=== PATIENT | female | born 1980 ===

== ENCOUNTER → 2020-03-25 19:22 | Outpatient (REF) | payer MEDICAID, SELFPAY | LOC: HO.SL 19:22 | PROVIDERS: Visit Provider Registered Nurse | DX: G47.19 Other hypersomnia (principal); R06.83 Snoring; F32.9 Major depressive disorder, single episode, unspecified; I10 Essential (primary) hypertension | CPT/HCPCS: 95811 ==

== ENCOUNTER 2020-04-30 10:23 | Outpatient (REF) | payer MEDICAID, SELFPAY | END 2020-04-30 10:24 | disposition home or self-care (01) | LOC: HO.LAB 10:23 | PROVIDERS: Visit Provider Internal Medicine | DX: Z20.828 Contact with and (suspected) exposure to other viral communicable diseases (principal) | CPT/HCPCS: C9803; U0003 ==

== ENCOUNTER 2020-08-29 09:00 | Outpatient (RCR) | payer MEDICAID, SELFPAY ==
[2020-07-28 08:54] VITALS: BP 144/81; PULSE 81
== END 2021-07-03 14:28 | disposition home or self-care (01) ==
LOC: HO.PT 09:00
PROVIDERS: PCP Registered Nurse; Visit Provider Registered Nurse
DX: M79.672 Pain in left foot (principal)
CPT/HCPCS: 97033; 97110; 97161; 97530; 97535

== ENCOUNTER 2020-11-04 08:25 | Outpatient (REF) | payer MEDICAID, SELFPAY | END 2020-11-04 08:26 | disposition home or self-care (01) | LOC: HO.XRAY 08:25 | PROVIDERS: Visit Provider Surgery | DX: Z13.89 Encounter for screening for other disorder (principal) ==

== ENCOUNTER 2020-12-19 14:29 | Outpatient (REF) | payer MEDICAID, SELFPAY ==
[2020-12-19 15:02] LABS: COVID-19 Test Positive (Negative); IDNOW Serial# 08D9AD1C
== END 2020-12-19 14:30 | disposition home or self-care (01) ==
LOC: HO.LAB 14:29
PROVIDERS: Visit Provider Internal Medicine
DX: Z20.822 Contact with and (suspected) exposure to COVID-19 (principal)
CPT/HCPCS: 36415; 87635; C9803

== ENCOUNTER 2021-12-06 10:22 | Emergency (ER) | payer MEDICAID, SELFPAY ==
[2021-12-06 11:01] VITALS: BP 159/71; PULSE 70; RESP 18; TEMP 36.2; O2SAT 99; BMI 36.0
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
[2021-12-06] MEDS: Cyclobenzaprine HCl 5 MG TABLET PO (11:51)
[2021-12-06] MEDS: Ketorolac Tromethamine 15 MG/ML VIAL IM (11:52)
== END 2021-12-06 12:01 | disposition home or self-care (01) ==
PROVIDERS: Emergency Provider Student in an Organized Health Care Education/Training Program
DX: S29.9XXA Unspecified injury of thorax, initial encounter (principal); M54.2 Cervicalgia; V43.52XA Car driver injured in collision with other type car in traffic accident, initial encounter; Y93.9 Activity, unspecified; Y92.410 Unspecified street and highway as the place of occurrence of the external cause; Y99.9 Unspecified external cause status; Z79.899 Other long term (current) drug therapy
CPT/HCPCS: 96372; 99283; 99284; J1885

== ENCOUNTER 2022-01-27 07:56 | Emergency (ER) | payer MEDICAID, SELFPAY ==
--- NOTE | ~2022-01-27 | XR_ITS ---
EXAMINATION: XR SHOULDER, LEFT CLINICAL INFORMATION: Left shoulder pain. COMPARISON: None. TECHNIQUE: Four views of the left shoulder. FINDINGS: The bones and soft tissues are normal. No fracture. Glenohumeral and acromioclavicular alignment is anatomic with normal joint space. No abnormal soft tissue calcifications. XR/XR shoulder LT min 2V IMPRESSION: Normal left shoulder.
[2022-01-27 08:24] VITALS: BP 161/87; PULSE 88; RESP 18; TEMP 36.4; O2SAT 100; BMI 34.7
--- NOTE | 2022-01-27 08:55 | ED_ITS ---
HPI - General Adult General Chief complaint: Neck Pain/Injury Stated complaint: l sided neck and arm pain Time Seen by Provider: 01/27/22 08:27 Source: patient Mode of arrival: ambulatory History of Present Illness HPI narrative: 41 year old female with no sig PMHx presenting to the ED complaining of left shoulder pain radiating to neck and LUE x2 weeks. 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 Pain worse with movement/palpation. Denies direct injury/trauma or fall, numbness, tingling, weakness, headache, vision change, CP. Has been taking ibuprofen with mild relief Onset (ago): week(s) Related Data Previous Rx's Medication Instructions Recorded cyclobenzaprine 5 mg tablet 5 mg PO TID PRN muscle spasm 7 12/06/21 days #21 tabs Allergies Allergy/AdvReac Type Severity Reaction Status Date / Time No Known Allergies Allergy Verified 12/06/21 11:01 Review of Systems Review of Systems: Constitutional: No Fever, No Chills ENT/Mouth: No Ear Pain, No Nasal Congestion, No Sinus Pain, No Hoarseness, No sore throat, No Rhinorrhea, No Swallowing Difficulty Cardiovascular: No Chest Pain, No SOB Respiratory: No Cough, No Sputum, No Wheezing Gastrointestinal: No Nausea, No Vomiting, No Diarrhea, No Constipation, No Abdominal pain Genitourinary: No Dysuria, No Urinary Frequency, No Hematuria, No Urinary Incontinence/retention Musculoskeletal: + joint pain, No Myalgias, No Joint Swelling Skin: No Skin Lesions, No rash Neuro: No Weakness, No Numbness, No Paresthesias Yes all other systems are reviewed and are negative Constitutional: Constitutional: Reports as per [facility] Past Medical History Attestation statement: The following information was validated with the patient. Social History Social History Advance Directives: No Advance Directives Information Provided: No Physical Exam ED Vital Signs: Vital Signs - 24 hr 01/27/22 08:24 Temperature 97.5 F Pulse Rate 88 Respiratory Rate 18 Blood Pressure 161/87 H Pulse Oximetry 100 Oxygen Delivery Method Room Air BMI result Body Mass Index 34.7 Const General: cooperative, healthy appearing and no acute distress Orientation/consciousness: patient oriented x3 Limitations: no limitations HENMT Head: Yes normal to inspection and Yes atraumatic Ears: hearing grossly normal bilaterally, TM normal on the left and mastoids normal General nose exam: Normal external nose present Face and sinus: Yes normal facial exam Eyes General: appearance normal, both eyes and all related structures EOM: EOMs intact bilaterally Neck Other: No midline cervical spinous tenderness/step-off or deformity. + left-sided trapezius muscle tenderness and muscle spasming Neck: Yes normal visual inspection and Yes no meningeal signs Resp Effort & Inspection: normal respiratory effort and no respiratory distress Cardio Rate: regular rate Heart sounds: S1 normal heart sound present and S2 normal heart sound present Peripheral pulses: radial pulses present and ulnar radial pulses present Back/Spine/Pelvis Other: No midline thoracic/lumbar spinous tenderness/step-off or deformity Skin Rashes: no rashes Wounds: no wounds Neuro General: patient oriented x3, tone normal and no meningeal signs Gait exam (Neuro): Normal gait present Extrem Other: + left AC joint tenderness. Full range of motion intact shoulder with pain. Strength intact General: Yes normal to inspection Course Course Course Narrative: XR shoulder LT min 2V IMPRESSION: Normal left shoulder. Results discussed with patient w/ resource manager forester including worrisome signs and symptoms and strict return precautions, and when to return to the emergency department. They verbalized understanding and feel safe for discharge at this time. Medical Decision Making MDM Narrative Medical decision making narrative: 41 year old female with no sig PMHx presenting to the ED complaining of left shoulder pain radiating to neck and LUE x2 weeks. On exam vital signs stable, NAD, nontoxic appearing, physical exam as above. Concern for MSK pain/strain vs tendinitis. Low suspicion for fracture, cervical dissection, or ACS Plan: X-rays, IM Toradol, PCP follow-up Medical Records Medical records reviewed: Yes I reviewed the patient's medical records. Lab Data Lab results reviewed: Yes I reviewed the patient's lab results. Discharge Plan Discharge Clinical Impression: Left shoulder strain Patient Disposition: Home, Self-Care Instructions: Muscle Strain (ED) Additional Instructions: Your pain is likely musculoskeletal/tendonitis Flexeril is a muscle relaxer, take at night as it makes you drowsy, do not drive, drink alcohol, or operate machinery while taking it Naproxen as an anti-inflammatory / pain medication, take with food Lidoderm patches are numbing patches, apply to painful area In addition take Tylenol at home If symptoms persist or worsen, pain becomes unbearable, you developed urinary retention or incontinence, or weakness return to the ED Es probable que dye dolor sea musculoesquel?michele/tendinitis Flexeril es un relajante muscular, t?kalpana por la noche ya que te adormece, no conduzcas, bebas alcohol ni operes maquinaria mientras lo brie. Naproxeno bessy medicamento antiinflamatorio/analg?sico, t?tony con alimentos Los parches de Lidoderm son parches anest?sicos, se aplican en el ?mallory dolorida Adem?s kusum Tylenol en casa Si los s?ntomas persisten o empeoran, el dolor se vuelve insoportable, desarroll? retenci?n urinaria o incontinencia, o debilidad, regrese al servicio de urgencias. Prescriptions: No Action cyclobenzaprine 5 mg tablet 5 mg PO TID PRN (Reason: muscle spasm) 7 Days Qty: 21 0RF Referrals: [facility] [place] [facility] [place] Group] Stand Alone Forms: Work/School Release Print Language: Russian
[2022-01-27] MEDS: Ketorolac Tromethamine 30 MG/ML VIAL IM (09:53)
== END 2022-01-27 10:19 | disposition home or self-care (01) ==
PROVIDERS: Emergency Provider Emergency Medicine
DX: S46.912A Strain of unspecified muscle, fascia and tendon at shoulder and upper arm level, left arm, initial encounter (principal); X50.1XXA Overexertion from prolonged static or awkward postures, initial encounter; Y93.E9 Activity, other interior property and clothing maintenance; Y92.019 Unspecified place in single-family (private) house as the place of occurrence of the external cause; Y99.0 Civilian activity done for income or pay
CPT/HCPCS: 73030; 96372; 99283; 99284; J1885

== ENCOUNTER 2022-12-23 09:54 | Outpatient (REF) | payer MEDICAID, SELFPAY ==
[2022-12-23 10:09] LABS: MANUAL DIFF FLAG NO
[2022-12-23 10:45] LABS: Basophils Absolute Auto 0.1 X10*3/uL (0.0-0.2); Basophils Percent Auto 0.5 % (0-2); Eosinophils Absolute Auto 0.2 X10*3/uL (0.0-0.4); Hematocrit 39.8 % (37.0-47.0); Imm Gran Abs Auto 0.05 X10*3/uL (0.00-0.03); Imm Gran Pct Auto 0.5 % (0.0-0.4); Lymphocytes Percent Auto 28.2 % (20-40); Mean Corpuscular HGB Conc 32.7 g/dl (31.0-35.0); Mean Corpuscular Hemoglobin 29.2 pg (27.0-33.0); Mean Corpuscular Volume 89.4 fL (80.0-98.0); Mean Platelet Volume 9.7 fL (9.4-12.3); Monocytes Absolute Auto 0.6 X10*3/uL (0.1-1.2); Neutrophils Absolute Auto 6.8 x10*3/uL (2.0-8.3); Neutrophils Percent Auto 62.8 % (45-73); Platelet Count 300 X10*3/uL (160-400); Red Blood Count 4.45 X10*6/uL (4.20-5.50); Red Cell Distribution Width 12.3 % (11.0-16.0); White Blood Count 10.7 X10*3/uL (4.8-10.8)
[2022-12-23 11:00] LABS: Estimated Average Glucose 97 mg/dL
[2022-12-23 11:20] LABS: Alanine Aminotransferase 34 U/L (0-31); Albumin Level 4.1 g/dL (3.5-5.0); Alkaline Phosphatase 76 U/L (39-117); Anion Gap 13 (12-20); Aspartate Amino Transferase 20 U/L (5-31); Bilirubin Direct 0.2 mg/dL (0.0-0.5); Bilirubin Total 0.4 mg/dL (0.0-1.0); Blood Urea Nitrogen 13 mg/dL (9-16); Calcium 9.8 mg/dL (8.4-10.2); Carbon Dioxide 30 mmol/L (22-29); Chloride 100 mmol/L (96-108); Cholesterol 185 mg/dL; Estimated Glomerular Filt Rate > 60; Glucose Random 98 mg/dL (60-115); HDL Cholesterol 43 mg/dL; LDL Cholesterol Calculated 119 mg/dl; Potassium 3.8 mmol/L (3.3-5.1); Sodium 139 mmol/L (135-145); Total Protein 7.7 g/dL (6.5-8.0); Triglycerides 119 mg/dL
[2022-12-23 11:35] LABS: TSH reflex Free T4 1.32 uIU/mL (0.32-4.0)
[2022-12-24 04:13] LABS: Syphilis Screen Nonreactive (Nonreactive)
== END 2022-12-23 09:55 | disposition home or self-care (01) ==
LOC: HO.LAB 09:54
PROVIDERS: PCP Registered Nurse; Visit Provider Registered Nurse
DX: Z00.00 Encounter for general adult medical examination without abnormal findings (principal); R53.83 Other fatigue; I10 Essential (primary) hypertension
CPT/HCPCS: 36415; 80053; 80061; 82248; 83036; 84443; 85025; 86780

== ENCOUNTER 2023-10-21 09:42 | Outpatient (REF) | payer MEDICAID, SELFPAY ==
[2023-10-21 11:51] LABS: Estimated Average Glucose 94 mg/dL; Hemoglobin A1c % 4.9 % (<6.0)
[2023-10-21 12:00] LABS: Alanine Aminotransferase 29 U/L (0-31); Albumin Level 4.3 g/dL (3.5-5.0); Alkaline Phosphatase 69 U/L (39-117); Anion Gap 10 (12-20); Aspartate Amino Transferase 20 U/L (5-31); Bilirubin Total 0.4 mg/dL (0.0-1.0); Blood Urea Nitrogen 12 mg/dL (9-16); Calcium 9.8 mg/dL (8.4-10.2); Carbon Dioxide 28 mmol/L (22-29); Chloride 106 mmol/L (96-108); Cholesterol 197 mg/dL (<200); Estimated Glomerular Filt Rate > 60; Glucose Random 105 mg/dL (60-115); HDL Cholesterol 40 mg/dL (>40); LDL Cholesterol Calculated 141 mg/dL (<100); Potassium 4.7 mmol/L (3.3-5.1); Sodium 139 mmol/L (135-145); Total Protein 7.8 g/dL (6.5-8.0); Triglycerides 82 mg/dL (<150)
[2023-10-21 12:17] LABS: Free T4 (Free Thyroxine) 0.83 ng/dL (0.71-1.85); Thyroid Stimulating Hormone 1.11 uIU/mL (0.32-4.0)
== END 2023-10-21 09:43 | disposition home or self-care (01) ==
LOC: HO.HHCL 09:42
PROVIDERS: Visit Provider Registered Nurse
DX: E66.01 Morbid (severe) obesity due to excess calories (principal); Z68.38 Body mass index [BMI] 38.0-38.9, adult
CPT/HCPCS: 36415; 80053; 80061; 83036; 84439; 84443

== ENCOUNTER 2023-12-27 09:05 | Outpatient (AMB) | payer OTHER, MEDICAID, SELFPAY ==
--- NOTE | 2023-12-27 09:16 | A.OFFVIS_ITS ---
Vital Signs 12/27/23 09:25 Height 5 ft 7 in Weight 234 lb BMI 36.6 BP 151/101 H Blood Pressure Location Rt brachial Position Sitting Pulse 68 Intake Visit Reasons: back lesion Intake Note: Patient referred by pcp Bettina Toledo NICKOLAS for cyst on mid upper back. Present for 3yrs. Patient c/o: irritated when rubs with clothing. Shopper Insights Manager Required: No Accompanied by: Self / Same As Patient Allergies No Known Allergies Allergy (Verified 12/27/23 09:21) Medication List - Last Reconciled 12/27/23 by Joce Gonzalez MD acetaminophen (Tylenol Extra Strength) 500 mg PO Q6H PRN cyclobenzaprine 5 mg PO TID PRN 7 days cyclobenzaprine 5 mg PO Q8H PRN 5 days escitalopram oxalate mg PO lidocaine 5% (Lidoderm) 1 patch topical DAILY PRN MDD remove after 12 hours naproxen 500 mg PO BID PRN 10 days nicotine (polacrilex) mg PO olmesartan mg PO HPI Comments Details: Patient presents with a symptomatic right upper back sebaceous cyst. She has had this several years time. His increasing in size, become more symptomatic. She would like to have removed. She has no such lesions elsewhere. Chart was reviewed and patient evaluate [facility] Medical History (Updated 12/27/23 @ 09:23 by BRUCE Holcomb) HTN (hypertension) Social History (Updated 12/27/23 @ 09:24 by BRUCE Holcomb) Alcohol intake: current Alcohol intake frequency: holidays/special occasions only Alcohol type: beer Tobacco use type: Cigarette Cigarettes Per Day: 7 Physical Exam Vital Signs: Last Vital Signs Pulse 68 12/27/23 09:25 BP 151/101 H 12/27/23 09:25 BMI result Body Mass Index 36.6 Back/Spine/Pelvis Other: Patient has roughly 3 x 2 cm upper back sebaceous cyst. Office Procedures Excision Details: Risks, benefits, alternatives of excision of upper back sebaceous cyst reviewed the patient included but not limited to bleeding, infection, recurrence, numbness, pain, scarring the patient wished to proceed. All questions answered. Consent signed. After appropriate positioning, patient underwent 1% lidocaine and Betadine prep and transverse by elliptical incision was made around the cyst in question measuring approximately 3 x 2 cm. Cyst was uneventfully excised of the pathology. Wound was irrigated, secured hemostasis, and closed using running 3-0 Vicryl suture followed by Steri-Strips and sterile dressings. Patient tolerated procedure well. 80925-vljaq/arms/legs 2.1-3cm Procedure code (CPT) selection complete Office Meds lidocaine 1 %-epinephrine 1:100,000 injection solution Performing Provider: Joce Gonzalez MD [place] [facility] [place] [facility] Administered by: Joce Gonzalez MD on 12/27/23 10:01 Dose Route Admin Location Dispensed Lot Number Expiration Date [facility] [place][NOTE 3] Mixing Machine Operator 10 mL Infiltration 10 mL Assessment & Plan Assessment & Plan (1) Sebaceous cyst: Code(s): L72.3 - Sebaceous cyst Category: Surgical Plan: Patient has been given local instructions including avoiding strenuous activities for next few weeks time, may shower in 2 days, ice to the wound periodically, Tylenol and Motrin p.r.n. pain and may shower in 2 days removing on the outside dressing leaving Steri-Strips intact. Patient will see me as directed or p.r.n.. Orders: Orders AMB Excision Today L72.3 - Sebaceous cyst Surgical Today L72.0 - Epidermal cyst Medications: New lidocaine-epinephrine 1 %-1:100,000 10 mL Infiltration ONCE 30 mL 0RF L72.3 - Sebaceous cyst Coding Level of Care Code New Pt Level 5 (82780) Diagnoses Sebaceous cyst L72.3 CPT Codes Trunk/Arms/Legs - CPT: 10996-wngaq/arms/legs 2.1-3cm ([id number])
[2023-12-27 09:25] VITALS: BP 151/101; PULSE 68; BMI 36.6
== END 2023-12-27 09:50 | disposition home or self-care (01) ==
PROVIDERS: PCP Registered Nurse; Visit Provider Surgery
DX: L72.0 Epidermal cyst (principal)
CPT/HCPCS: 11403; 99204

== ENCOUNTER 2023-12-27 09:05 | Outpatient (REF) | payer OTHER, MEDICAID, SELFPAY | END 2023-12-27 09:06 | disposition home or self-care (01) | LOC: HO.LNP 09:05 | PROVIDERS: PCP Registered Nurse; Visit Provider Surgery | DX: L72.0 Epidermal cyst (principal); L72.3 Sebaceous cyst | CPT/HCPCS: 11403; 88304; 99202 ==

== ENCOUNTER 2024-01-10 08:16 | Outpatient (AMB) | payer OTHER, MEDICAID, SELFPAY ==
--- NOTE | 2024-01-10 08:26 | MHC.OFFVIS ---
Vital Signs 01/10/24 08:27 Height 5 ft 7 in Weight 235 lb BMI 36.8 BP 173/89 H Blood Pressure Location Rt brachial Position Sitting Pulse 71 Intake Visit Reasons: 1 week follow up back lesion Intake Note: Patient here s/p WLE cyst on mid upper back. Patient c/o: reports site healing well. Steri strips fell off. Denies oozing, pain. Radioactive Waste Disposal Dispatcher Required: No Accompanied by: Self / Same As Patient Allergies No Known Allergies Allergy (Verified 01/10/24 08:26) HPI Comments Details: Patient presents with her family member for follow-up. She has no wound issues so complaints. Pathology is benign [facility] Medical History HTN (hypertension) Surgical History (Updated 01/06/24 @ 09:42 by BRUCE Holcomb) Hx of surgical procedure (12/27/23) Social History (Updated 12/27/23 @ 09:24 by BRUCE Holcomb) Alcohol intake: current Alcohol intake frequency: holidays/special occasions only Alcohol type: beer Tobacco use type: Cigarette Cigarettes Per Day: 7 Physical Exam Vital Signs: Last Vital Signs Pulse 71 01/10/24 08:27 BP 173/89 H 01/10/24 08:27 BMI result Body Mass Index 36.8 Back/Spine/Pelvis Other: Back wound clean dry and intact healing very well Assessment & Plan Assessment & Plan (1) Postop check: Code(s): Z09 - Encounter for follow-up examination after completed treatment for conditions other than malignant neoplasm Category: Medical Plan Patient has been given local instructions, and will follow-up p.r.n.. Coding Level of Care Code Global (92085) Diagnoses Postop check Z09
[2024-01-10 08:27] VITALS: BP 173/89; PULSE 71; BMI 36.8
== END 2024-01-10 09:20 | disposition home or self-care (01) ==
PROVIDERS: PCP Registered Nurse; Visit Provider Surgery
DX: Z09 Encounter for follow-up examination after completed treatment for conditions other than malignant neoplasm (principal)
CPT/HCPCS: 99024

== ENCOUNTER → 2024-01-10 08:16 | Outpatient (BNVA) | payer OTHER, MEDICAID, SELFPAY | PROVIDERS: PCP Registered Nurse; Visit Provider Surgery | DX: Z09 Encounter for follow-up examination after completed treatment for conditions other than malignant neoplasm (principal) | CPT/HCPCS: 99212 ==

== ENCOUNTER 2024-08-28 09:36 | Outpatient (REF) | payer OTHER, MEDICAID, SELFPAY ==
--- NOTE | ~2024-08-28 | XR_ITS ---
EXAMINATION: XR KNEE, LEFT CLINICAL INFORMATION: pain x3 months COMPARISON: None available. TECHNIQUE: Four views of the left knee. FINDINGS: No fracture, dislocation, or suspicious bone lesion. Normal bone mineralization. Normal alignment. There is mild to moderate tricompartmental joint space narrowing, most significant in the patellofemoral compartment, where there is lateral patellar tilt, and narrowing of the lateral patellar facet/trochlear articulation. There are small marginal osteophytic spurs in all 3 compartments. There is mild spurring of the tibial spines. Small suprapatellar joint effusion. Soft tissues appear normal. XR/XR knee LT 4V IMPRESSION: 1. Mild to moderate tricompartmental osteoarthritis, most significant in the patellofemoral compartment. Electronically signed by: Louis Gutiérrez MD 08/28/2024 10:16 AM EDT
--- OUTSIDE RECORDS SUMMARY | 2024-08-28 10:37 | XMS_ITS | Clinical Summary ---
Author Organization [facility] ity Address [address] [place] [address] Care Team Providers Care Logistics Service Representative Name Role Phone Unavailable Primary Care Provider Unavailabl e Surgical History Surgery Date Site/Laterality Comments OTHER SURGICAL HISTORY PROCEDURE: DE LIG/TRNSXJ FLP TUBE ABDL/VAG APPR UNI/BI TUBAL LIGATION PROCEDURE: HISTORICAL TUBAL LIGATION Medical History Medical History Date Comments HTN (hypertension) DX:HTN (hyper tension) HTN (hypertension) 09/19/2023 DX:HTN (hyper tension) Family History Medical History Relation Name Comments Hypertension Father Diabetes Mother Hypertension Mother Breast cancer Neg Hx Colon cancer Neg Hx Ovarian cancer Neg Hx Prostate cancer Neg Hx Relation Name Status Comments Brother 1 Alive Brother 2 Alive Father Alive Half-Brother Alive Half-Sister Alive Mother Alive Sister 1 Alive Sister 2 Alive Social History Tobacco Use Types Packs/Day Years Used Date Smoking Tobacco: Heavy Smoker Cigarettes Smokeless Tobacco: Never Alcohol Use Standard Drinks/Week Comments No 0 (1 standard drink = 0.6 oz pur e alcohol) Comments Unknown Sex and Gender Information Value Date Recorded Sex Assigned at Not on file Legal Sex Female 5:45 AM EST Gender Identity Not on file Sexual Orientation Not on file Obstetrics History Last Filed Vital Signs Vital Sign Reading Time Taken Comments Blood Pressure 127/70 09/19/2023 10:58 AM EDT Pulse 88 09/19/2023 10:58 AM EDT Temperature - - Respiratory Rate - - Oxygen Saturation - - Inhaled Oxygen Concentration - - Weight 114 kg (252 lb) 09/19/2023 10:58 AM EDT Height 170.2 cm (5' 7 ) 09/19/2023 10:58 AM EDT Body Mass Index 39.47 09/19/2023 10:58 AM EDT Plan of Treatment Upcoming Encounters Date Type Department Care Team (Late st Contact Info) Description 02/04/2025 8:30 AM EDT Appointment Radiology Department - [place] [address] [place] [address] Health Maintenance Due Date Last Done Comments DTaP,Tdap,and Td Vaccines (1 - Tdap) 2000 Hepatitis B Vaccines (1 of 3 - 19+ 3-dose series) 2000 Pneumococcal Vaccine: Pediatrics (0 to 5 Years) and At-Risk Patients (6 to 64 Years) (1 of 2 - PCV) 2000 Cervical Cancer Screening: P ap Smear 07/27/2020 07/27/2017, 07/27/2017 Cholesterol Screening (Lipid Panel) 06/07/2023 Depression Screening 06/07/2023 Hepatitis C Screening 06/07/2023 Social Influencers of Health Screening 06/07/2023 Hypertension/CHF/CAD Annual BMP Blood Test 12/02/2023 COVID-19 Vaccine (2023-2 5 season) 2024 Influenza Vaccine (Season Ended) 2025 Breast Cancer Screening 01/23/2026 01/24/20 24, 01/24/2024, 01/17/2023 HIV Screening Completed 09/19/2023 HIB Vaccines Aged Out No longer eligi ble based on patient's age to complete this topic HPV Vaccines Aged Out No longer eligi ble based on patient's age to complete this topic Hepatitis A Vaccines Aged Out No long er eligible based on patient's age to complete this topic IPV Vaccines Aged Out No longer eligi ble based on patient's age to complete this topic MMR Vaccines Aged Out No longer eligi ble based on patient's age to complete this topic Meningococcal ACWY Vaccine Aged Out N o longer eligible based on patient's age to complete this topic Meningococcal B Vaccine Aged Out No l onger eligible based on patient's age to complete this topic RSV Immunization Patients Under 20 months Aged Out No longer eligible b ased on patient's age to complete this topic Varicella Vaccines Aged Out No longer eligible based on patient's age to complete this topic Procedures Procedure Name Priority Date/Time Associated Diagnosis Comments SCREENING MAMMOGRAPHY BI 2-VIEW BREAST INC CAD Routine 01/24/2024 8:52 AM EDT Encounter for screening mammogram for malignant neoplasm of breast PAP SMEAR Routine 07/27/2017 from Last 3 Months or Most Recently Relevant to Health Maintenance Results * SCREENING MAMMOGRAPHY BI 2-VIEW BREAST INC CAD (01/24/2024 8:52 AM EDT) Anatomical Region Laterality Modality Radiographic Michelle ging 01/17/2023 7:55 AM EDT Narrative 01/24/2024 2:34 PM EDT This is a summary report. The complete report is available in the patient's medical record. If you cannot access the medical record, please contact the sending organization for a detailed fax or copy. Full field digital screening tomosynthesis mammography, reviewed with CAD and compared to previous mammogram of 01/17/2023. The breast tissue is heterogeneously dense, limiting sensitivity. No suspicious mass, architectural distortion or suspicious calcifications are identified. IMPRESSION: : Dense breast tissue, limiting the sensitivity of mammography. No mammographic evidence of malignancy. BIRADS 1-Negative; N. Breast density: The breasts are heterogeneously dense, which may obscure small masses. 5 year breast cancer risk assessment 0.3 % Lifetime breast cancer risk assessment 5.1 % Breast cancer risk category Low (<15%) Location: [facility], [address] [place] [address], [place], [address], [phone] Procedure Note Adrianna De Paz MD - 02/22/2024 This is a summary report. The complete report is available in thepatient's medical record. If you cannot access the medical record, pleasecontact the sending organization for a detailed fax or copy. Full field digital screening tomosynthesis mammography, reviewed with CADand compared to previous mammogram of 01/17/2023. The breast tissue isheterogeneously dense, limiting sensitivity. No suspicious mass,architectural distortion or suspicious calcifications are identified. IMPRESSION: : Dense breast tissue, limiting the sensitivity of mammography. Nomammographic evidence of malignancy. BIRADS 1-Negative; N. Breast density: The breasts are heterogeneously dense, which may obscuresmall masses. 5 year breast cancer risk assessment 0.3 % Lifetime breast cancer risk assessment 5.1 % Breast cancer risk category Low (<15%) [facility]: [facility], [address] [facility] [facility] [place], [address], [phone] Chika Malagon CNM IMG XR PROCEDURES Final Result * Pap smear (07/27/2017) 07/27/2017 Narrative HISTORICAL TESTING LAB RESULTING AGENCY - 07/29/2017 1:30 PM EDT [id number] THINPREP PAP, IMAGED: NEGATIVE FOR SQUAMOUS INTRAEPITHELIAL LESION AND MALIGNANCY ??. RESULT OF APTIMA HIGH RISK HPV ASSAY: ? NEGATIVE ?? (SEROTYPES 16,18,31,33,35,39,45,51,52,56,58,59,66,68) JACY FATIMA(ASCP) (CASE ELECTRONICALLY SIGNED 07 29 2017) ADEQUACY: SATISFACTORY. ENDOCERVICAL/TRANSFORMATION ZONE COMPONENT PRESENT. SOURCE: THINPREP PAP HPV ANY DX: ??REFLEX 16 AND 18, CERVICAL, IMAGED: CLINICAL INFORMATION: HPV ANY DIAGNOSIS. Z12.4, Z01.419, Z12.12, PAP HX: POSITIVE, BALWINDER AT 2010 COLPO BX LEEP, LMP: 07/06/17 us Chika Malagon CNM LAB CYTOLOGY ORDERABLES Final R esult HISTORICAL TESTING LAB RESULTING AGENCY from Last 3 Months or Most Recently Relevant to Health Maintenance
--- OUTSIDE RECORDS SUMMARY | 2024-08-28 10:37 | XMS_ITS | Encounter Summary ---
Author Organization [employer] Address [address] [place] [address] Care Team Providers Care Foam Rubber Molder Name Role Phone [facility] Primary Care Provider Reason for Visit * Reason Onset Date Comments Durable Medical Equipment 08/20/2024 [facility] ([facility]): Nasal mask Encounter Details Date Type Department Care Team (Late st Contact Info) Description 08/20/2024 Telephone [facility] MEDICINE [address] [place], [place] [phone] [facility] [address] [place] [address] Durable Medical Equipment ([facility] ([facility]): Nasal mask) Social History Tobacco Use Types Packs/Day Years Used Date Smoking Tobacco: Every Day Cigarettes Smokeless Tobacco: Never Alcohol Use Standard Drinks/Week Comments Never 0 (1 standard drink = 0.6 oz pur e alcohol) Alcohol Answer Date Recorded Frequency of Alcohol Consumption Not on file 10/21/2023 Average Number of Drinks Not on file 024 Frequency of Binge Drinking Not on file 10/07 Score 0 10/21/2023 Depression Answer Date Recorded Patient Health Questionnaire-9 Score 5 10/21/2023 Patient Health Questionnaire-9 Score 5 10/21/2023 Last PHQ-9: Questionnaire Data Not on file 0 10/21/2023 Housing Stability Answer Date Recorded What is your housing situation today? I have paul mendoza 08/23/[address] you li ve. Do you have problems with any of the following? None of the above 08/23/2024 Food Insecurity Answer Date Recorded Within the past 12 months, y ou worried that your food would run out before you got money to buy more: Never True 08/23/2024 Within the past 12 months,th e food you bought just didn't last and you didn't have enough money to get more: Never True Transportation Answer Date Recorded In the past 12 months, has l ack of transportation kept you from medical appts, meetings, work or from getting things needed for daily living? No 08/23/2024 Utilities Answer Date Recorded In the past 12 months, has t he electric, gas, oil or water company threatened to shut off services in your home? No 08/23/2024 Depression Answer Date Recorded Patient Health Questionnaire-2 Score 2 10/21/2023 Internet Access Answer Date Recorded Internet Access Q1 Yes 08/23/2024 Internet Access Q2 Not on file 08/23/2024 Comments Unknown Sex and Gender Information Value Date Recorded Sex Assigned at Female 03/08/2022 10:26 AM EDT Legal Sex Female 10:26 AM EDT Gender Identity Female 03/08/2022 10:26 AM EDT Sexual Orientation Straight 03/08/2022 10 :26 AM EDT documented as of this encounter Miscellaneous Notes * Telephone Encounter - Crissy Fortune - 08/23/2024 10:06 AM EDT Confirmation of order for Nasal Mask signed and faxed to [facility] ([facility]). Confirmation received and sent to [facility]. If patient calls to check status on above, please advise them to contact [facility] at [phone]. * Telephone Encounter - Crissy Fortune - 08/20/2024 1:32 PM EDT Recertification for CPAP Nasal Mask from [facility] received and is being processed. documented in this encounter Plan of Treatment Not on file documented as of this encounter Visit Diagnoses Not on filedocumented in this encounter Additional Health Concerns Assessment Noted Time PHQ-9 Depression Total Score: 5 10/21/19 24 9:08 AM EDT documented as of this encounter Care Teams Foam Rubber Molder Relationship Specialty Start Date End Date Bettina Bergeron FNP [address] [place] [address] PCP - General Family Medicine 01/06/22 documented as of this encounter
--- OUTSIDE RECORDS SUMMARY | 2024-08-28 10:37 | XMS_ITS | Encounter Summary ---
Author Organization [employer] Address [address] [place] [address] Care Team Providers Care Chicken Cutter Name Role Phone [facility] Primary Care Provider [phone] Encounter Details Date Type Department Care Team (Latest Contact Info) Description 08/23/2024 Travel Social History Tobacco Use Types Packs/Day Years [...] is your housing situation today? I have paulrex mendoza 08/23/[address] you [...] Access Q2 Not on file 08/23/2024 Comments No Sex and Gender Information Value Date Recorded Sex Assigned at Female 03/08/2022 10:26 AM EDT Legal Sex Female 10:26 AM EDT Gender Identity Female 03/08/2022 10:26 AM EDT Sexual Orientation Straight 03/08/2022 10 :26 AM EDT documented as of this encounter Plan of Treatment Not on file documented as of this encounter Visit Diagnoses Not on filedocumented in this encounter Additional Health Concerns Assessment Noted Time PHQ-9 Depression Total Score: 5 10/21/19 24 9:08 AM EDT documented as of this encounter Care Teams Chicken Cutter Relationship Specialty Start Date End Date Bettina Bergeron FNP [address] [place] [phone] PCP - General Family Medicine 01/06/22 documented as of this encounter
--- OUTSIDE RECORDS SUMMARY | 2024-08-28 10:37 | XMS_ITS | Encounter Summary ---
Author Organization [employer] Address [address] [place] [address] Care Team Providers Care Yield Engineer Name Role Phone [facility] Primary Care Provider [phone] Encounter Details Date Type Department Care Team (Late st Contact Info) Description 08/23/2024 11:30 AM EDT Office Visit [facility] MEDICINE [address] [place] [address] Saundra Spicer MD [address] [place], [place] [phone] Acute pain of left knee; Bilateral wrist pain; Bilateral hand numbness Social History Tobacco Use Types Packs/Day Years Used Date Smoking Tobacco: Every Day Cigarettes Smokeless Tobacco: Never Tobacco Cessation:Ready to Q uit: Not Asked; Counseling Given: Not Answered Alcohol Use Standard Drinks/Week Comments Never 0 [...] AM EDT documented as of this encounter Last Filed Vital Signs Vital Sign Reading Time Taken Comments Blood Pressure 138/90 08/23/2024 11:24 AM EDT Pulse 85 08/23/2024 11:24 AM EDT Temperature 36.3 ??C (97.4 ??F) 08/23/2024 11:24 AM E DT Respiratory Rate 19 08/23/2024 11:24 AM EDT Oxygen Saturation 98% 08/23/2024 11:24 AM EDT Inhaled Oxygen Concentration - - Weight 117 kg (258 lb) 08/23/2024 11:24 AM EDT Height 170.2 cm (5' 7 ) 08/23/2024 11:24 AM EDT Body Mass Index 40.41 08/23/2024 11:24 AM EDT documented in this encounter Progress Notes * Saundra Johnson MD - 08/23/2024 11:30 AM EDT SUBJECTIVE: Elmira Oconnell is a 43 y.o. year old female who presents for knee pain . Acute Concerns: Patient reports that for about 2 weeks she has been having pain located in her left knee, patient reports she does not recall any triggering activity and she has not had any trauma to her knee. Patient reports she feels her knee mildly swell and is tender to palpation Patient also reports she has been having pain on both wrists and numbness in her hands, more on herright hand than the left one Social History Social History Narrative Current living environment: Lives with daughter and boyfriend Children: 2 Employment/Education: [employer] Tobacco Use: approx 6 per day. Started age 17. Alcohol Use: None Marijuana Use: None Other drug use: None Reproductive Health: Sexually Active: Yes Partners are: AMAB Control: BTL Planning a in the next 12 months: No Patient Active Problem List Diagnosis Depressive disorder Essential hypertension Sleep apnea H/O tubal ligation Tobacco use Acute pain of left knee Bilateral wrist pain Bilateral hand numbness Family History Problem Relation Name Age of Onset Hypertension Mother Diabetes type II Mother Review of Systems Constitutional: Negative. HENT: Negative. Respiratory: Negative. Cardiovascular: Negative. Gastrointestinal: Negative. Musculoskeletal: Positive for arthralgias and myalgias. OBJECTIVE: Vitals: 08/23/24 1124 BP: (!) 138/90 BP Location: Left arm Patient Position: Sitting BP Cuff Size: Adult Pulse: 85 Resp: 19 Temp: 97.4 ??F (36.3 ??C) TempSrc: Oral SpO2: 98% Weight: 258 lb (117 kg) Height: 5' 7 (1.702 m) Physical Exam Constitutional: Appearance: Normal appearance. Cardiovascular: Rate and Rhythm: Normal rate and regular rhythm. Pulmonary: Effort: Pulmonary effort is normal. Breath sounds: Normal breath sounds. Musculoskeletal: General: Tenderness present. Right wrist: Tenderness present. Left wrist: Tenderness present. Right knee: Normal. Left knee: Bony tenderness present. Decreased range of motion. Tenderness present over the LCL. Comments: Phallen test is positive on the right hand Neurological: Mental Status: She is alert. Follow Up: No follow-ups on file. Current Outpatient Medications on File Prior to Visit Medication Sig Dispense Refill acetaminophen (Tylenol) 500 MG tablet Take 2 tablets (1,000 mg) by mouth every 6 (six) hours if needed for moderate pain or fever for up to 25 doses. 50 tablet 0 Blood Pressure kit Use to take blood pressure 2 times a day, hypertension. buPROPion SR (Wellbutrin SR) 150 MG 12 hr tablet TAKE 1 TABLET BY ORAL ROUTE EVERY MORNING FOR 3 DAYS. IF TOLERATING WELL MAY INCREASE TO TWICE DAILY 180 tablet 1 Cetirizine HCl 10 MG capsule take one capsule every morning while allergy symptoms persist chlorthalidone (Hygroton) 25 MG tablet TAKE 1/2 TABLET BY MOUTH DAILY 45 tablet 1 cholecalciferol (Vitamin D-3) 50 MCG (2000 UT) capsule Take 1 capsule by mouth. escitalopram (Lexapro) 5 MG tablet Take 1 tablet by mouth per day. If tolerating well may increase to 2 tablet (10mg) one daily 60 tablet 2 ibuprofen 400 MG tablet Take 1 tablet (400 mg) by mouth every 6 (six) hours if needed for moderate pain or fever for up to 30 doses. 30 tablet 0 naproxen (Naprosyn) 500 MG tablet Take 1 tablet by mouth every 12 (twelve) hours. nicotine (Nicoderm CQ) 14 MG/24HR patch Place 1 patch on the skin 1 (one) time each day at the sametime. 42 patch 0 nicotine polacrilex (Nicorette) 4 MG gum Chew 1 each (4 mg) if needed for smoking cessation. 100 each 2 olmesartan (Benicar) 5 MG tablet Take 2 tablets (10 mg) by mouth Once per day. 180 tablet 3 omeprazole (PriLOSEC) [address] capsule TAKE 1 CAPSULE BY MOUTH EVERY DAY 30 MINUTES TO 1 HOUR BEFORE A MEAL 90 capsule 1 sodium chloride (Luray) 0.65 % nasal spray Administer 1 spray into each nostril if needed for congestion. 1-2 spray each nostril every 2-3 hours as needed for nasal congestion. 30 mL 1 triamcinolone (Kenalog) 0.1 % cream Apply topically every 12 (twelve) hours. [DISCONTINUED] ibuprofen 400 MG tablet Take 1 tablet (400 mg) by mouth every 6 (six) hours if needed for moderate pain or fever for up to 30 doses. 30 tablet 0 No current facility-administered medications on file prior to visit. Problem List Items Addressed This Visit Acute pain of left knee I advised to elevate the knee apply ice and rest I will order an x-ray and contact patient with results and plan Relevant Medications acetaminophen (Tylenol Extra Strength) 500 MG tablet Other Relevant Orders XR Knee 4+ Views Left Bilateral wrist pain Bilateral hand numbness I am suspecting she has carpal tunnel syndrome, I will generate a prescription for bilateral wrist braces and advised to use them at bedtime and during the day if possible, will consider nerve conduction studies if problem is persistent or worse documented in this encounter Miscellaneous Notes * Assessment & Plan Note - Saundra Johnson MD - 08/24/2024 2:20 PM EDT Associated Problem(s): Acute pain of left knee I advised to elevate the knee apply ice and rest I will order an x-ray and contact patient with results and plan * Assessment & Plan Note - Saundra Johnson MD - 08/24/2024 2:19 PM EDT Associated Problem(s): Bilateral hand numbness I am suspecting she has carpal tunnel syndrome, I will generate a prescription for bilateral wrist braces and advised to use them at bedtime and during the day if possible, will consider nerve conduction studies if problem is persistent or worse documented in this encounter Plan of Treatment Not on file documented as of this encounter Procedures Procedure Name Priority Date/Time Associated Diagnosis Comments XR KNEE 4+ VIEWS LEFT Routine 08/28/2024 9:37 AM EDT Acute pain of left knee documented in this encounter Results * XR Knee 4+ Views Left (08/28/2024 9:37 AM EDT) Anatomical Region Laterality Modality Lower Extremities, Knee Left Radiogra [facility] 08/28/2024 9:37 AM EDT Narrative 08/28/2024 10:19 AM EDT ?[facility] ?[address] ?[place] [address] ?XRay Report ? Signed ? Patient: Peter Saunders,Elmira ?MR#: ?? [id number] ? : 1980 ?Acct:[id number] ? Age/Sex: 43 / F ?ADM Date: 08/28/24 ? Loc: HO.HHCX ? Attending Dr: Saundra Johnson MD ? Ordering Physician: Saundra Spicer MD ?? Date of Service: 08/28/24 ?? Procedure(s): XR knee LT 4V ?? Accession Number(s): [id number] ? cc: Saundra Spicer MD ? EXAMINATION: ?? XR KNEE, LEFT ? CLINICAL INFORMATION: ?? pain ??x3 months ? COMPARISON: ?? None available. ? TECHNIQUE: ?? Four views of the left knee. ? FINDINGS: ?? No fracture, dislocation, or suspicious bone lesion. Normal bone ?? mineralization. ?? Normal alignment. ?? There is mild to moderate tricompartmental joint space narrowing, most ?? significant in the patellofemoral compartment, where there is lateral ?? patellar tilt, and narrowing of the lateral patellar facet/trochlear ?? articulation. There are small marginal osteophytic spurs in all 3 ?? compartments. There is mild spurring of the tibial spines. ? Small suprapatellar joint effusion. ? Soft tissues appear normal. ? XR/XR knee LT 4V ?? IMPRESSION: ?? 1. Mild to moderate tricompartmental osteoarthritis, most significant ?? in the patellofemoral compartment. ? Electronically signed by: ??Louis Gutiérrez MD ??08/28/2024 10:16 AM EDT RP ? Dictated By: ?Louis Gutiérrez MD ? Signed By: ?<Electronically signed by Louis Gutiérrez MD in OV> ?08/28/24 1016 ? DD/ 0937 ? TD/TT: 08/28/24 0959 ? Rn Occupational Health: ? Procedure Note Angelique Cadena - 08/28/2024 [facility] [address] [place] [address] XRay Report Signed Patient: Elmira DumontMR#: [id number] : 1980Acct:[id number] Age/Sex: 43 / FADM Date: 08/28/24 Loc: HO.HHCX Attending Dr: Saundra Johnson MD Ordering Physician: Saundra Spicer MD Date of Service: 08/28/24 Procedure(s): XR knee LT 4V Accession Number(s): [id number] cc: Saundra Spicer MD EXAMINATION: XR KNEE, LEFT CLINICAL INFORMATION: pain x3 months COMPARISON: None available. TECHNIQUE: Four views of the left knee. FINDINGS: No fracture, dislocation, or suspicious bone lesion. Normal bone mineralization. Normal alignment. There is mild to moderate tricompartmental joint space narrowing, most significant in the patellofemoral compartment, where there is lateral patellar tilt, and narrowing of the lateral patellar facet/trochlear articulation. There are small marginal osteophytic spurs in all 3 compartments. There is mild spurring of the tibial spines. Small suprapatellar joint effusion. Soft tissues appear normal. XR/XR knee LT 4V IMPRESSION: 1. Mild to moderate tricompartmental osteoarthritis, most significant in the patellofemoral compartment. Electronically signed by: Louis Gutiérrez MD 08/28/2024 10:16 AM EDT Dictated By: Louis Gutiérrez MD Signed By: <Electronically signed by Louis Gutiérrez MD in OV> 08/28/24 1016 DD/ 0937 TD/TT: 08/28/24 0959 Rn Occupational Health: Saundra Johnson MD IMG XR PROCEDURES Fin al Result documented in this encounter Visit Diagnoses Diagnosis Acute pain of left knee Bilateral wrist pain Bilateral hand numbness Disturbance of skin sensation documented in this encounter Additional Health Concerns Assessment Noted Time PHQ-9 Depression Total Score: 5 10/21/19 24 9:08 AM EDT documented as of this encounter Care Teams Yield Engineer Relationship Specialty Start Date End Date Bettina Bergeron FNP [address] [place] [id number] PCP - General Family Medicine 01/06/22 documented as of this encounter
--- OUTSIDE RECORDS SUMMARY | 2024-08-28 10:37 | XMS_ITS | Clinical Summary ---
Author Organization [employer] Address [address] [place] [address] Care Team Providers Care Custodial Supervisor Name Role Phone [facility] Primary Care Provider [phone] Allergies No known active allergies Medications Cetirizine HCl 10 MG capsule take one capsule every morning while allergy symptoms persist 08/08/19 22 Active cholecalciferol (Vitamin D-3) 50 MCG (1999) capsule Take 1 capsule by mouth. 03/03/20 21 Active naproxen (Naprosyn) 500 MG tablet Take 1 tablet by mouth every 12 (twelve) hours. 02/05/20 22 Active triamcinolone (Kenalog) 0.1 % cream Apply topically every 12 (twelve) hours. 08/08/19 22 Active Blood Pressure kit Use to take blood pressure 2 times a day, hypertension. Active acetaminophen (Tylenol) 500 MG tablet Take 2 tablets (1,000 mg) by mouth every 6 (six) hours if needed for moderate pain or fever for up to 25 doses. 50 tablet 10/27/19 23 Active sodium chloride ([place]) 0.65 % nasal spray Administer 1 spray into each nostril if needed for congestion. 1-2 spray each nostril every 2-3 hours as needed for nasal congestion. 30 mL 1 10/27/19 23 Active nicotine (Nicoderm CQ) 14 MG/24HR patch Place 1 patch on the skin 1 (one) time each day at the same time. 42 patch 10/27/19 23 Active omeprazole (PriLOSEC) [address] capsule TAKE 1 CAPSULE BY MOUTH EVERY DAY 30 MINUTES TO 1 HOUR BEFORE A MEAL 90 capsule 1 04/11/20 23 Active buPROPion SR (Wellbutrin SR) 150 MG 12 hr tabletIndicatio ns:Tobacco use TAKE 1 TABLET BY ORAL ROUTE EVERY MORNING FOR 3 DAYS. IF TOLERATING WELL MAY INCREASE TO TWICE DAILY 180 tablet 1 06/29/19 24 Active olmesartan (Benicar) 5 MG tabletIndicatio ns:Essential hypertension Take 2 tablets (10 mg) by mouth Once per day. 180 tablet 3 10/21/19 24 Active nicotine polacrilex (Nicorette) 4 MG gumIndications: Tobacco use Chew 1 each (4 mg) if needed for smoking cessation. 100 each 2 10/21/19 24 Active escitalopram (Lexapro) 5 MG tabletIndicatio ns:Essential hypertension Take 1 tablet by mouth per day. If tolerating well may increase to 2 tablet (10mg) one daily 60 tablet 2 10/21/19 24 Active chlorthalidone (Hygroton) 25 MG tablet TAKE 1/2 TABLET BY MOUTH DAILY 45 tablet 1 11/14/19 24 Active ibuprofen 400 MG tablet Take 1 tablet (400 mg) by mouth every 6 (six) hours if needed for moderate pain or fever for up to 30 doses. 30 tablet 08/21/19 25 Active acetaminophen (Tylenol Extra Strength) 500 MG tabletIndicatio ns:Acute pain of left knee Take 1 tablet (500 mg) by mouth every 6 (six) hours if needed for mild pain for up to 10 days. 30 tablet 08/24/19 25 025 Active ibuprofen 400 MG tablet Take 1 tablet (400 mg) by mouth every 6 (six) hours if needed for moderate pain or fever for up to 30 doses. 30 tablet 10/27/19 23 025 Discontinued(R eorder (will not trigger notification to Pharmacy)) Active Problems Problem Noted Date Diagnosed Date Acute pain of left knee 08/23/2024 Assessment & Plan (08/24/2024 2:20 PM EDT): I advised to elevate the knee apply ice and rest I will order an x-ray and contact patient with results and plan Bilateral wrist pain 08/23/2024 Bilateral hand numbness 08/23/2024 Assessment & Plan (08/24/2024 2:19 PM EDT): I am suspecting she has carpal tunnel syndrome, I will generate a prescription for bilateral wrist braces and advised to use them at bedtime and during the day if possible, will consider nerve conduction studies if problem is persistent or worse Tobacco use 01/06/2023 Overview (03/21/2023): - Previously tried patches 9not effective) Assessment & Plan (03/21/2023 2:27 PM EST): - Readiness 10/16 - Shared decision make re options. Will trial buproprion d/t hx of weight gain with prior cessation efforts. -START buproprion 150mg XR. Reviewed administration, risks, side effects to include feeling anxious, jittery, or restless, trouble sleeping, fatigue, headaches, nausea or upset stomach, dry mouth, sexual dysfunction and weight gain. Stop taking this medication and seek immediate medical care if experiencing thoughts of suicide, fever, muscle rigidity, changes in blood pressure or heart palpitations. Risk of rare but serious side effects increases if taking multiple medications for depression or anxiety simultaneously. - Nicotine lozenge PRN for cravings - Pt declines referral to pharmacy or group cessation Depressive disorder 03/27/2022 Essential hypertension 03/27/2022 Overview (03/20/2023): ?? Chlorthalidone 25mg ?? Olmesartan 5mg Maintenance: BMP: 12/2022 Lipid Panel: 12/2022 ASCVD Risk: 4.9% EKG: Obtain baseline at f/u - Aerobic exercise to reduce BP. Initial goal of 30 min walk 3-5x/week. Increase as tolerated. - low-sodium diet (goal: <2g/day) and heart healthy diet such as DASH to reduce BP and prevent ASCVD. - Home BP monitoring 1-2 x day with goal of <140/90. - Seek immediate medical attention for chest pain, palpitations, SOB, syncope, or sudden changes in mental status. - Do not change or discontinue current prescriptions without first consulting health care provider Assessment & Plan (03/21/2023 2:25 PM EST): ?? Mild elevation of BP in office. Home readings well controlled ?? Continue current regimen. Continue to monitor Sleep apnea 05/18/2021 Overview (03/20/2023): ?? Uses CPAP H/O tubal ligation 10/26/2016 Encounters Date Type Department Care Team Description 08/23/2024 11:30 AM EDT Office Visit [facility] [address] [place] [address] Saundra Spicer MD Acute pain of left knee; Bilateral wrist pain; Bilateral hand numbness 08/23/2024 Travel 08/20/2024 Refill [facility] [address] [place] [address] [facility] 08/20/2024 Telephone [facility] [address] [place] [address] [facility] ([facility] ([facility]): Nasal mask) from Last 3 Months Immunizations Name Administration Dates Next Due Influenza injectable quadriv alent IIV4 with preservative 01/31/2018 Influenza injectable quadrivalent preservative f ree 03/21/2023,03/02/2021 Pfizer Covid-19 Vaccine 12+ 11/28/2020 Tdap 10/18/2018 Family History Medical History Relation Name Comments Diabetes type II Mother Hypertension Mother Relation Name Status Comments Father Mother Social History Tobacco Use Types Packs/Day Years [...] Orientation Straight 03/08/2022 10 :26 AM EDT Last Filed Vital Signs Vital Sign Reading [...] Mass Index 40.41 08/23/2024 11:24 AM EDT Plan of Treatment Health Maintenance Due Date Last Done Comments Family Planning (PISQ) 1996 Hepatitis B Vaccines (1 of 3 - 19+ 3-dose series) 2000 Pneumococcal Vaccine: Pediatrics (0 to 5 Years) and At-Risk Patients (6 to 49) Years) (1 of 2 - PCV) 2000 Mammogram 2021 COVID-19 Vaccine (3 - 2023- season) 2024 01/17/2021, 11/28/2020 Influenza Vaccine (#1) 2024 3, 03/02/2021, 01/31/2018 Alcohol/Substance Use Screening 10/20/2024 10/21/2023 Depression Screening 10/20/2024 10/21/2023, 10/21/19 24 Pap Smear 11/26/2024 11/26/2021 SDOH Screening 08/23/2025 08/23/2024 Tobacco Screening 08/23/2025 08/23/2024 Cervical Cancer Screening 11/26/2026 HPV/Cotest 11/26/2026 11/26/2021 DTaP/Tdap/Td Vaccines (2 - Td or Tdap) 10/18/2028 10/18/2018 Lipid Panel 10/20/2028 10/21/2023, 12/07, 03/29/2022, Additional history exists Zoster Vaccines (1 of 2) 10/05/2031 RSV Patients and Patients Aged 60 years or older (1 - 1-dose 75+ series) 2056 HIV Screening Completed 03/29/2022, 12/04/2019 Hepatitis C Screening Completed 03/29/2022 HIB Vaccines Aged Out No longer eligi [...] patient's age to complete this topic Meningococcal Vaccine Aged Out No makenzie macie eligible based on patient's age to complete this topic RSV under 20 months Aged Out No longe r eligible based on patient's age to complete this topic Rotavirus Vaccines Aged Out No longer eligible based on patient's age to complete this topic Procedures Procedure Name Priority Date/Time Associated Diagnosis Comments XR KNEE 4+ VIEWS LEFT Routine 08/28/2024 9:37 AM EDT Acute pain of left knee LIPID PANEL, STANDARD Routine 10/21/2023 9:43 AM EDT Class 2 severe obesity due to excess calories with serious comorbidity and body mass index (BMI) of 38.0 to 38.9 in adult (CMS/HCC) ZZZ HISTORICAL HEPATITIS C AB W/REFL TO HCV RNA, QN, PCR Routine 03/29/2022 8:40 AM EST HIV 1/2 ANTIGEN/ANTIBODY, FOURTH GENERATION W/RFL Routine 03/29/2022 8:40 AM EST THINPREP IMAGING PAP AND HPV MRNA E6/E7, WITH CT/NG, TRICHOMONAS Routine 11/26/2021 3:33 PM EDT from Last 3 Months or Most Recently Relevant to Health Maintenance Results * XR Knee 4+ Views Left (08/28/2024 9:37 AM EDT) Anatomical Region Laterality Modality Lower Extremities, Knee Left [facility] 08/28/2024 9:37 AM EDT Narrative 08/28/2024 10:19 AM EDT ?[facility] ?[address] ?[place] [address] ?XRay Report ? Signed ? Patient: Peter Saunders,Elmira ?MR#: ?? [id number] ? : 1980 ?Acct:[id number] ? Age/Sex: 43 / F ?ADM Date: 04/22/25 ? Loc: HO.HHCX ? Attending Dr: Saundra Johnson MD ? Ordering Physician: Saundra Spicer MD ?? Date of Service: 08/28/24 ?? Procedure(s): XR knee LT 4V ?? Accession Number(s): [id number] ? cc: Saundra Spicer MD ? EXAMINATION: [...] DD/ 0937 ? TD/TT: 08/28/24 0959 ? Market Risk Manager: ? Procedure Note Angelique Cadena - 08/28/2024 [place] [address] XRay Report Signed Patient: Elmira Dumont#: [id number] : 1980Acct:[id number] Age/Sex: 43 / FADM Date: 08/28/24 Loc: HO.HHCX Attending Dr: Saundra Johnson MD Ordering Physician: Saundra Spicer MD Date of Service: 08/28/24 Procedure(s): XR knee LT 4V Accession Number(s): [id number] cc: Saundra Spicer MD EXAMINATION: XR KNEE, [...] 08/28/24 1016 DD/ 0937 TD/TT: 08/28/24 0959 Market Risk Manager: Saundra Johnson MD IMG XR PROCEDURES Fin al Result * (ABNORMAL) Lipid Panel, Standard (10/21/2023 9:43 AM EDT) Triglycerides 82 <150 mg/dL [facility] Comment:Desirable Triglyceri de: less than 150 mg/dLBorderline High Triglyceride 150-199 mg/dLHigh Triglyceride: 200-499 mg/dLVery High Triglyceride: greater than or equal to 5OO mg/dL Cholesterol 197 <200 mg/dL [facility] Comment:Desirable Cholestero l: less than 200 mg/dLBorderline High Cholesterol: 200-239 mg/dLHigh Cholesterol: greater than 239 mg/dL LDL Cholesterol Calculated 141(H) <100 mg/dL [facility] Comment:Desirable LDL: less than 100 mg/dLNear Optimal/Above Optimal LDL: 110- 129 mg/dLBorderline High LDL: 130-159 mg/dLHigh LDL: 160-189 mg/dLVery High LDL: greater than or equal to 190 mg/dL HDL Cholesterol 40(L) >40 mg/dL [facility] Comment:Desirable HDL: great er than 40 mg/dL Note: This HDL assay may give artificially low results in patients with liver disease. Blood Venous blood specimen / Unknown 10/21/2023 9:43 AM EDT 10/21/2023 11:07 AM EDT [facility] LAB BLOOD ORDERABLES Final Re sult Performing Organization Address City/[facility]/ZIP Co de Phone Number [facility] [address] [place] [address] [phone] * HEPATITIS C AB W/REFL TO HCV RNA, QN, PCR (03/29/2022 8:40 AM EST) HEPATITIS C ANTIBODY NON-REACTI VE NON-REACT FLOR [facility] INDEX 0.05 <1.00 [facility] Comment: ?? HCV antibody was non-reactive. There is no laboratory ?? evidence of HCV infection. ?? In most cases, no further action is required. However, if recent HCV exposure is suspected, a test for HCV RNA (test code 21777) is suggested. ?? For additional information please refer to http://education.Vine/faq/CAC59i5 (This link is being provided for informational/ educational purposes only.) ?? 03/29/2022 8:40 AM EST [facility] HISTORICAL/NON ORDERABLE LABS Final Result Performing Organization Address [facility] de Phone Number [facility] * HIV 1/2 ANTIGEN/ANTIBODY,FOURTH GENERATION W/RFL (03/29/2022 8:40 AM EST) HIV-1/2 ANTIGEN AND ANTIBODIES, 4TH GENERATION W/ REFLEX NON-REACT FLOR NON-REACT FLOR [facility] Comment: HIV-1 antigen and HIV-1/HIV-2 antibodies were not detected. There is no laboratory evidence of HIV infection. ?? PLEASE NOTE: This information has been disclosed to you from records whose confidentiality may be protected by state law. ??If your state requires such protection, then the state law prohibits you from making any further disclosure of the information without the specific written consent of the person to whom it pertains, or as otherwise permitted by law. A general authorization for the release of medical or other information is NOT sufficient for this purpose. ? For additional information please refer to http://Abroad101.Vine/faq/ZRY765 (This link is being provided for informational/ educational purposes only.) ? The performance of this assay has not been clinically validated in patients less than 2 years old. ?? 03/29/2022 8:40 AM EST [facility] LAB BLOOD ORDERABLES Final Re sult [facility] * (ABNORMAL) THINPREP TIS PAP AND HPV mRNA E6/E7, CT/NG, TRICH (11/26/2021 3:33 PM EDT) Chlamydia trachomatis RNA, TMA, Urogenital NOT DETECTED NOT DETECTED [facility] Clinical Information: None given [facility] COMMENT SEE COMMENT [facility] Comment: The analytical performance characteristics of this assay, when used to test SurePath(TM) specimens have been determined by [employer]. The modifications have not been cleared or approved by the FDA. This assay has been validated pursuant to the CLIA regulations and is used for clinical purposes. ?? For additional information, please refer to https://Abroad101.Vine/faq/WGU083 (This link is being provided for information/ educational purposes only.) ?? COMMENT SEE COMMENT [facility] Comment: EXPLANATORY NOTE: ? The Pap is a screening test for cervical cancer. It is ?? not a diagnostic test and is subject to false negative ?? and false positive results. It is most reliable when a ?? satisfactory sample, regularly obtained, is submitted ?? with relevant clinical findings and history, and when ?? the Pap result is evaluated along with historic and ?? current clinical information. ?? COMMENT: This Pap test has been evaluated with computer assisted technology. [facility] Laboratory Courier: SEE COMMENT [facility] Comment: CMG, CT(ASCP) CT screening location: [address] ??[address] HPV nRNA E6/E7 Detected(A) Not Detected [facility] [email or web address] Comment: Methodology: Sap Bw Architect-Mediated Amplification This assay detects E6/E7 viral messenger RNA (mRNA) from 14 high-risk HPV types (16,18,31,33,35,39,45,51,52,56,58,59,66,68). ? Cervical sources are required for HPV testing. If a vaginal source from a patient who has had a total hysterectomy with removal of cervix was ?? submitted, please contact the testing laboratory for alternative testing options. ?? For additional information, please refer to http://Abroad101.Vine/faq/QPN408r1 (This link if provided for information/ educational purposes only.) Infection Shift in vaginal analisa suggestive of bacterial vaginosis. [facility] Interpretation/Re sult: Negative for intraepithelial lesion or malignancy. [facility] LMP: [phone] [facility] Neisseria gonorrhoeae RNA, TMA, Urogenital NOT DETECTED NOT DETECTED [facility] Prev. BX: NONE GIVEN [facility] Prev. PAP: NONE GIVEN [facility] Review Laboratory Courier: SEE COMMENT [facility] Comment: RXB, CT(ASCP) CT screening location: [address] ??[id number] SOURCE: None given [facility] Statement Of Adequacy: SEE COMMENT [facility] Comment: Satisfactory for evaluation. Endocervical/transformation zone component present. Trichomonas vaginalis, QL, TMA, PAP Vial NOT DETECTED NOT DETECTED [facility] Comment: The analytical performance characteristics of this assay have been determined by [employer]. The modifications have not been cleared or approved by the FDA. This assay has been validated pursuant to the CLIA regulations and is used for clinical purposes. ?? For additional information, please refer to http://education.Vine/ faq/Trichomonastma (This link is being provided for information/ educational purposes only.) ?? 11/26/2021 3:33 PM EDT us Sylvia Downing NP LAB PATHOLOGY ORDERABLES Final Result [facility] [address] from Last 3 Months or Most Recently Relevant to Health Maintenance Insurance [facility] Care Teams Custodial Supervisor Relationship Specialty Start Date End Date Bettina Bergeron FNP [address] [place] [phone] PCP - General Family Medicine 01/06/22
--- OUTSIDE RECORDS SUMMARY | 2024-08-28 10:37 | XMS_ITS | Encounter Summary ---
Author Organization [employer] Address [address] [place] [address] Care Team Providers Care Surgical Pathologist Name Role Phone [facility] Primary Care Provider [phone] Reason for Visit * Reason Comments Med Refill Encounter Details Date Type Department Care Team ([facility] st Contact Info) Description 04/10/2023 Refill [facility] [address] [place] [address] [facility] [address] [place], [place] [phone] Social History Tobacco Use Types Packs/Day Years Used Date Smoking Tobacco: Every Day Cigarettes Smokeless Tobacco: Never Alcohol Use Standard Drinks/Week Comments Never 0 (1 standard drink = 0.6 oz pur e alcohol) Depression Answer Date Recorded Patient Health Questionnaire-9 Score 0 03/21/2023 Patient Health Questionnaire-9 Score 0 03/21/2023 Last PHQ-9: Questionnaire Data Not on file 1 05/21/2022 Housing Stability Answer Date Recorded What is your housing situation today? I have paul mendoza 02/27/[address] you li ve. Do you have problems with any of the following? None of the above 02/27/2023 Food Insecurity Answer Date Recorded Within the past 12 months, y ou worried that your food would run out before you got money to buy more: Never True 02/27/2023 Within the past 12 months,th e food you bought just didn't last and you didn't have enough money to get more: Never True Transportation Answer Date Recorded In the past 12 months, has l ack of transportation kept you from medical appts, meetings, work or from getting things needed for daily living? No 02/27/2023 Utilities Answer Date Recorded In the past 12 months, has t he electric, gas, oil or water company threatened to shut off services in your home? No 02/27/2023 Depression Answer Date Recorded Patient Health Questionnaire-2 Score 0 03/21/2023 Comments Unknown Sex and Gender Information Value [...] Assessment Noted Time PHQ-9 Depression Total Score: 0 03/21/20 23 10:08 AM EST documented as of this encounter Care Teams Surgical Pathologist Relationship Specialty Start Date End Date Bettina Bergeron FNP [address] [place] [id number] PCP - General Family Medicine 01/06/22 documented as of this encounter
== END 2024-08-28 09:37 | disposition home or self-care (01) ==
LOC: HO.HHCX 09:36
PROVIDERS: Visit Provider Internal Medicine
DX: M25.562 Pain in left knee (principal)
CPT/HCPCS: 73564

== ENCOUNTER → 2024-08-28 09:37 | Outpatient (BNV) | payer OTHER, MEDICAID, SELFPAY | PROVIDERS: Visit Provider Radiology Diagnostic Radiology | DX: M17.12 Unilateral primary osteoarthritis, left knee (principal) | CPT/HCPCS: 73564 ==